=== PATIENT | male | born 1980 | race Hispanic/Latino ===

== ENCOUNTER 2021-10-22 00:22 | Emergency (ER) | payer OTHER ==
[~2021-10-22] VITALS: Ht 157.5 cm; Wt 80.3 kg
[2021-10-22] MEDS ORDERED: FLUORESCEIN SODIUM 1 STRIP STRIP ONE (02:12)
[2021-10-22] MEDS ORDERED: TETRACAINE HCL 0.5% 4 ML OPHTH SOLN ONE (02:12)
[2021-10-22 03:47] VITALS: BP 141/85
== END 2021-10-22 04:06 | disposition home or self-care (01) ==
LOC: EDH 00:22
DX: T15.11XA Foreign body in conjunctival sac, right eye, initial encounter (principal); X58.XXXA Exposure to other specified factors, initial encounter; Y93.89 Activity, other specified; Y92.89 Other specified places as the place of occurrence of the external cause; Y99.8 Other external cause status
CPT/HCPCS: 65205